=== PATIENT | female | born 1980 | race Caucasian/White ===

== ENCOUNTER 2018-06-06 12:22 | Emergency (ER) | payer BC ==
--- NOTE | 2018-06-06 12:50 | UC ---
Abdominal Pain Female HPI - HPI Summary HPI Summary: 38 yo female presents with diarrhea for the last 3 days. She tells me that 3 days ago she developed a few episodes of loose stools and 2 days ago developed watery diarrhea that has continued into today. She has taken immodium with no change. States she is having around 15 urgent watery stools daily. She is eating and drinking well, but does feel slightly nauseous. She denies recent illness, anbx use, travel, new foods, abdominal pain, vomiting, blood in stool. - History of Current Complaint Chief Complaint: UCGI Stated Complaint: DIARRHEA NAUSEA Time Seen by Provider: 06/06/18 12:50 Hx Obtained From: Patient Onset/Duration: Sudden Onset Severity Initially: Mild Severity Currently: Mild Pain Intensity: 4 Pain Scale Used: 0-10 Numeric Allergies/Adverse Reactions: Allergies Allergy/AdvReac Type Severity Reaction Status Date / Time No Known Allergies Allergy Verified 06/06/18 12:44 Home Medications: Home Medications Buprenorphine HCl/Naloxone HCl [Suboxone] 1 mis SL 06/06/18 [History] Loperamide HCl [Imodium A-D] 4 mg PO 06/06/18 [History] PMH/Surg Hx/FS Hx/Imm Hx - Additional Past Medical History Additional PMH: Drug abuse - Surgical History Surgical History: None - Social History Lives: With Family Alcohol Use: Rare Substance Use Type: None Smoking Status (MU): Never Smoked Tobacco Type: eCigarettes Review of Systems All Other Systems Reviewed And Are Negative: Yes Constitutional: Positive: Negative Skin: Positive: Negative Respiratory: Positive: Negative Cardiovascular: Positive: Negative Gastrointestinal: Positive: Diarrhea Genitourinary: Positive: Negative Neurovascular: Positive: Negative Neurological: Positive: Negative Psychological: Positive: Negative Physical Exam - Summary Physical Exam Summary: GENERAL: NAD. WDWN. No pain distress. SKIN: No rashes, sores, lesions, or open wounds. NECK: Supple. Nontender. No lymphadenopathy. CHEST: CTAB. No r/r/w. No accessory muscle use. Breathing comfortably and in no distress. CV: RRR. Without m/r/g. Pulses intact. Cap refill <2seconds ABDOMEN: Soft. NTTP. No distention or guarding. No CVA tenderness. Hyperactive bowel sounds NEURO: Alert. PSYCH: Age appropriate behavior. Triage Information Reviewed: Yes Vital Signs: Initial Vital Signs Temp 98.4 F 06/06/18 12:38 Pulse 91 06/06/18 12:38 Resp 18 06/06/18 12:38 BP 120/72 06/06/18 12:38 Pulse Ox 99 06/06/18 12:38 Vital Signs Reviewed: Yes Abd Pain Female Course/Dx - Course Course Of Treatment: Pt was able to produce a stool sample in the clinic, thus will test for stool culture, c diff, and ova parasites. Will treat with flagyl and await stool cultures to guide further treatment. Advised to stop taking immodium at this time and try a bland BRAT diet. - Differential Dx/Diagnosis Provider Diagnosis: Diarrhea Discharge - Sign-Out/Discharge Documenting (check all that apply): Patient Departure All imaging exams completed and their final reports reviewed: No Studies - Discharge Plan Condition: Stable Disposition: HOME Prescriptions: metroNIDAZOLE [Flagyl 500 MG TAB] 500 mg PO TID #21 tab Patient Education Materials: Acute Diarrhea (ED) Forms: *Work Release Referrals: No Primary Care Phys,NOPCP [Primary Care Provider] - Additional Instructions: If you develop a fever, shortness of breath, chest pain, new or worsening symptoms - please call your PCP or go to the ED. 1) Try a bland diet starting with Bananas, Rice, applesauce, and toast 2) We have collected a stool sample for further evaluation of your diarrhea - Billing Disposition and Condition Condition: STABLE Disposition: Home
--- NOTE | 2018-06-08 14:21 | PN ---
Progress Note - Progress Note Date of Service: 06/08/18 Note: Patient stool culture is negative for c diff and shiga. Will wait for final culture.
== END 2018-06-06 13:18 | disposition home or self-care (01) ==
LOC: UCEAST 12:22
DX: R19.7 Diarrhea, unspecified (principal)
CPT/HCPCS: 87045; 87046; 87177; 87209; 87328; 87329; 87493; 87899; 99201; G0463